=== PATIENT | male | born 1945 | race Caucasian/White ===

== ENCOUNTER 2017-11-18 09:36 | Outpatient (CLI) | payer MEDICARE, BC | END 2017-11-18 09:37 | disposition home or self-care (01) | LOC: BICMRI 09:36 | PROVIDERS: ATTEND Orthopaedic Surgery | DX: M22.2X1 Patellofemoral disorders, right knee (principal) ==

== ENCOUNTER 2018-01-22 16:01 | Outpatient (CLI) | payer MEDICARE, BC ==
[2018-01-22 17:04] LABS: #Eosinphils 0.3 thou/uL (0.0-0.7); #Lymphocytes 1.6 thou/uL (1.20-3.40); #Monocytes 0.4 thou/uL (0.11-0.59); #Neutrophils 2.7 thou/uL (1.40-6.50); %Basophils 0.4 % (0.0-1.0); %Eosinophils 5.1 % (0.0-10.0); %Lymphocytes 32.6 % (21.0-51.0); %Monocytes 7.7 % (0.0-10.0); %Neutrophils 54.3 % (42.0-75.0); Hemoglobin 14.6 g/dL (14.0-18.0); Mean Corpuscular HGB CONC 36.4 g/dL (32.0-36.0); Mean Corpuscular Hemoglobin 33.9 pg (27.0-31.0); Mean Corpuscular Volume 93.3 fL (78.0-98.0); Mean Platelet Volume 6.6 fL (7.4-10.4); Platelet Count 188 thou/uL (130-400); RBC Distribution Width 11.4 % (11.5-14.5); Red Blood Cell (RBC) Count 4.29 mill/uL (4.70-6.10)
[2018-01-22 17:37] LABS: Anion Gap 12 mmol/L (10-20); BUN (Urea Nitrogen) 13 mg/dL (8.4-25.7); Calc. Creatinine Clearance 0 mL/min (70-130); Calcium 9.3 mg/dL (7.8-10.44); Carbon Dioxide 28 mmol/L (23-31); Chloride 104 mmol/L (98-107); Estimated GFR-MDRD Greater than 90; Glucose 203 mg/dL (80-115); Potassium 3.6 mmol/L (3.5-5.1); Sodium 140 mmol/L (136-145)
== END 2018-01-22 16:02 | disposition home or self-care (01) ==
LOC: LABBT 16:01
PROVIDERS: ATTEND Orthopaedic Surgery
DX: Z01.818 Encounter for other preprocedural examination (principal); S83.241A Other tear of medial meniscus, current injury, right knee, initial encounter
CPT/HCPCS: 80048; 85025; 93005; 93010

== ENCOUNTER 2018-01-29 06:46 | Day surgery (SDC) | payer MEDICARE, BC ==
[2018-01-22 16:13] VITALS: BMI 30.8
[2018-01-29] MEDS ORDERED: PROPOFOL 20 ML ONE (08:11)
[2018-01-29] MEDS ORDERED: Bupivacaine HCl 0.5%/Epinephrine 1:200,000/PF 30 ml Vial ONE ×2 (09:06→12:59)
[2018-01-29] MEDS ORDERED: Fentanyl 100 MCG/2 ML VIAL ONE (09:31)
[2018-01-29] MEDS ORDERED: CEFAZOLIN/Water 2 GM/20 ML SYRINGE ONE (09:47)
--- NOTE | 2018-01-29 12:41 | OP ---
PREOPERATIVE DIAGNOSIS: Medial meniscus tear, right knee. POSTOPERATIVE DIAGNOSIS: Medial meniscus tear, right knee. SURGEON: Dano Pizarro M.D. ASSISTANT PROFESSOR OF ECONOMICS: None. BLOOD LOSS: Minimal. SPECIMEN: None. DRAINS: None. COMPLICATIONS: None. DESCRIPTION OF PROCEDURE: The patient was taken to the operating room where general anesthesia was i nduced. Right leg was prepped and draped in the usual sterile fashion. Scope was placed in the late ral portal and probe was placed in medial portal. 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 The lateral compartment was completely intact. ACL was intact. Medial compartment had grade II cho ndromalacia and a complex tear of the posterior horn of the medial meniscus. The medial meniscus annelise rided using basket forceps and smoothed using a 4-0 full radius resector. The knee was then irrigate d and drained. Sterile dressings applied.
[2018-01-29] MEDS ORDERED: Lidocaine 2% w/Epinephrine 1:200K 20 ML VIAL ONE (12:59)
== END 2018-01-29 12:30 | disposition home or self-care (01) ==
LOC: SDC 06:46
PROVIDERS: ATTEND Orthopaedic Surgery
PROC: 0SBC4ZZ Excision of Right Knee Joint, Percutaneous Endoscopic Approach (ICD-10-PCS; principal; 2018-01-29)
DX: S83.231A Complex tear of medial meniscus, current injury, right knee, initial encounter (principal); I10 Essential (primary) hypertension; E11.9 Type 2 diabetes mellitus without complications; E78.00 Pure hypercholesterolemia, unspecified; J45.909 Unspecified asthma, uncomplicated; Z79.899 Other long term (current) drug therapy; Z79.82 Long term (current) use of aspirin
CPT/HCPCS: 29881; 97139; G8978; G8979; G8980; J0670; J2704; J3010

== ENCOUNTER 2018-04-09 09:38 | Outpatient (CLI) | payer MEDICARE, BC ==
--- NOTE | 2018-04-09 10:44 | RAD ---
PA AND LATERAL CHEST: History: Dyspnea. FINDINGS: The heart size is normal. The aorta is tortuous. There is mild elevation of the right hemidiaphragm. The lungs are otherwise well expanded without lobar consolidation, pneumothoraxes or pleural effusion s. There are degenerative changes in the spine. IMPRESSION: No radiographic evidence of acute cardiopulmonary process. POS: [facility]
== END 2018-04-09 09:39 | disposition home or self-care (01) ==
LOC: RAD 09:38
PROVIDERS: ATTEND Internal Medicine Critical Care Medicine
DX: R06.00 Dyspnea, unspecified (principal)
CPT/HCPCS: 71046

== ENCOUNTER 2018-12-31 10:34 | Outpatient (CLI) | payer MEDICARE, BC ==
--- NOTE | 2018-12-31 10:43 | RAD ---
EXAM: Chest 2 views: HISTORY: Dyspnea COMPARISON: 04/09/2018 FINDINGS: There is a normal-sized cardiomediastinal silhouette. There is no evidence of consolidation, mass, or pleural effusion. Degenerative changes are seen in the spine. IMPRESSION: No evidence of acute cardiopulmonary disease
== END 2018-12-31 10:35 | disposition home or self-care (01) ==
LOC: RAD 10:34
PROVIDERS: ATTEND Internal Medicine Critical Care Medicine
DX: R06.00 Dyspnea, unspecified (principal)
CPT/HCPCS: 71046

== ENCOUNTER 2019-06-23 09:26 | Outpatient (CLI) | payer MEDICARE, BC ==
--- NOTE | 2019-06-23 10:55 | RAD ---
TWO VIEWS CHEST: DATE: 06/23/2019. PROVIDED CLINICAL HISTORY: Dyspnea. FINDINGS: Comparison 12/31/2018. Cardiac and mediastinal silhouette is within normal limits. Vascular calcific ation is seen. No focal consolidation, pleural fluid, or pneumothorax apparent. IMPRESSION: No evidence for an acute cardiopulmonary process. POS: OFF
== END 2019-06-23 09:27 | disposition home or self-care (01) ==
LOC: RAD 09:26
PROVIDERS: ATTEND Internal Medicine Critical Care Medicine
DX: R06.00 Dyspnea, unspecified (principal)
CPT/HCPCS: 71046

== ENCOUNTER 2020-08-11 13:57 | Outpatient (CLI) | payer MEDICARE, BC ==
--- NOTE | 2020-08-11 17:18 | MRI ---
MRI OF THE LEFT KNEE PERFORMED WITHOUT CONTRAST ENHANCEMENT: 08/11/20 HISTORY: Patient twisted the knee about a month ago. Having left knee pain and swelling. Anterior as well as posterior cruciate ligaments are intact. The lateral meniscus has a normal shape and appearance. The medial meniscus also appears unremarkable. The medial as well as lateral collateral ligaments and iliotibial band regions appear unremarkable. The patellar articular cartilage is intact. The medial and lateral patellar retinaculum and quadricep s and patellar tendons appear unremarkable. There is some mild joint effusion. Small Self's cyst is present. IMPRESSION: 1. No evidence of meniscal or cruciate ligament injury. 2. Mild joint effusion with a small Self's cyst. POS: OFF
== END 2020-08-11 13:58 | disposition home or self-care (01) ==
LOC: BICMRI 13:57
PROVIDERS: ATTEND Orthopaedic Surgery
DX: M23.92 Unspecified internal derangement of left knee (principal); M25.462 Effusion, left knee; M71.22 Synovial cyst of popliteal space [Baker], left knee

== ENCOUNTER 2021-03-20 08:55 | Outpatient (CLI) | payer MEDICARE, BC | END 2021-03-20 08:56 | disposition home or self-care (01) | LOC: BICULT 08:55 | PROVIDERS: ATTEND Registered Nurse | DX: Z13.6 Encounter for screening for cardiovascular disorders (principal) | CPT/HCPCS: 76775 ==

== ENCOUNTER 2024-02-27 10:47 | Outpatient (CLI) | payer MEDICARE, BC ==
[2024-02-27] MEDS ORDERED: Iopamidol 370 76% 100 ML VIAL ONE (10:50)
== END 2024-02-27 10:48 | disposition home or self-care (01) ==
LOC: BICCT 10:47
PROVIDERS: ATTEND Registered Nurse
DX: R06.00 Dyspnea, unspecified (principal); Z87.891 Personal history of nicotine dependence
CPT/HCPCS: 71260; Q9967